=== PATIENT | male | born 1955 | race Caucasian/White ===

== ENCOUNTER 2025-10-10 10:41 | Day surgery (SDC) | payer MEDICARE, OTHER ==
[~2025-10-10 10:41] MED LIST: Propofol 200 MG/20 ML SDV ONE; fentaNYL 100 MCG/2 ML SDV ONE
[2025-10-10] MEDS: Lactated Ringers 1,000 ML IV SCH (10:54)
[2025-10-10 13:45] VITALS: PULSE 77
[2025-10-10 14:00] VITALS: BP 117/76
== END 2025-10-10 14:17 | disposition home or self-care (01) ==
LOC: VM.SDS 10:41
PROVIDERS: ATTEND Family Medicine
DX: Z12.11 Encounter for screening for malignant neoplasm of colon (principal); D12.5 Benign neoplasm of sigmoid colon; K57.30 Diverticulosis of large intestine without perforation or abscess without bleeding; E78.00 Pure hypercholesterolemia, unspecified; Z79.899 Other long term (current) drug therapy
CPT/HCPCS: 00811; 88305; J2704; J3010; J7120